=== PATIENT | male | born 1950 | race Caucasian/White ===

== ENCOUNTER 2018-01-16 12:39 | Outpatient (CLI) | payer MEDICARE ==
--- NOTE | 2018-01-16 14:54 | CT ---
CT PULMONARY LUNG SCAN: HISTORY: V12.2, lung cancer screening. COMPARISON: None. FINDINGS: Lung screening specific (lung-RADS): There are no suspicious pulmonary nodules. Potentially significant incidentals (lung-RADS category S): Pulmonary incidentals: There is low-grade erythema. Mild atelectatic changes of the lung bases. Moderate coronary artery calcifications. Upper abdomen is unremarkable. No suspicious lytic or blastic lesions. IMPRESSION: 1. Lung RADS category 2: Benign appearance or behavior. Recommend followup CT in 1 year. 2. Lung RADS category S: No potentially significant incidentals findings requiring urgent additiona l evaluation. POS: [facility]
== END 2018-01-16 12:40 | disposition home or self-care (01) ==
LOC: CT 12:39
PROVIDERS: ATTEND Internal Medicine Pulmonary Disease
DX: Z12.2 Encounter for screening for malignant neoplasm of respiratory organs (principal)
CPT/HCPCS: G0297